=== PATIENT | male | born 1950 | race Caucasian/White ===

== ENCOUNTER 2019-10-30 08:29 | Inpatient (IN) ==
--- NOTE | 2019-10-15 19:52 | PAT Medication Instructions ---
Medication Instructions Date of Service October 15, 2019 Home Medications Medication Instructions Recorded hydrochlorothiazide 12.5 mg tablet 12.5 mg PO DAILY #30 tab 10/15/19 lisinopril 5 mg tablet 5 mg PO DAILY #30 tab 10/15/19 clonazepam 0.5 mg tablet 0.5 mg PO TID PRN omega-3 fatty acids 1,000 mg capsule 1,000 mg PO BID aspirin 81 mg tablet,delayed release 81 mg PO QAM azelastine 137 mcg (0.1 %) nasal spray aerosol 2 sprays INTNAS DAILY PRN ascorbic acid (vitamin C) [Vitamin C] 500 mg PO QAM cholecalciferol (vitamin D3) 2,000 units PO BID coenzyme Q10 [CoQ-10] 100 mg PO QAM echinacea 1,000 mg PO PM famotidine [Pepcid] 20 mg PO BID garlic 500 mg PO PM lactobacillus combination no.8 [Adult Probiotic] 3,000 mmu cells PO PM lisinopril-hydrochlorothiazide 0.5 tab PO PM loratadine 10 mg PO QAM saw-vit E-sod [id number] [Prostate Health] 1 tab PO DAILY PRN hydrochlorothiazide 12.5 mg tablet 12.5 mg PO DAILY lisinopril 5 mg tablet 5 mg PO DAILY ASK your prescriber and surgeon aspirin 81 mg tablet,delayed release 81 mg PO QAM STOP taking 2 weeks before surgery (or as soon as possible if surgery is within 2 weeks) omega-3 fatty acids 1,000 mg capsule 1,000 mg PO BID coenzyme Q10 [CoQ-10] 100 mg PO QAM echinacea 1,000 mg PO PM garlic 500 mg PO PM saw-vit E-sod [id number] [Prostate Health] 1 tab PO DAILY PRN DO NOT take the morning of surgery ascorbic acid (vitamin C) [Vitamin C] 500 mg PO QAM cholecalciferol (vitamin D3) 2,000 units PO BID loratadine 10 mg PO QAM hydrochlorothiazide 12.5 mg tablet 12.5 mg PO DAILY lisinopril 5 mg tablet 5 mg PO DAILY Take morning of surgery With a small sip of water, OTHERWISE NOTHING TO EAT OR DRINK AFTER MIDNIGHT: clonazepam 0.5 mg tablet 0.5 mg PO TID PRN (if needed) azelastine 137 mcg (0.1 %) nasal spray aerosol 2 sprays INTNAS DAILY PRN (if needed) famotidine [Pepcid] 20 mg PO BID Take evening before surgery clonazepam 0.5 mg tablet 0.5 mg PO TID PRN (if needed) azelastine 137 mcg (0.1 %) nasal spray aerosol 2 sprays INTNAS DAILY PRN (if needed) cholecalciferol (vitamin D3) 2,000 units PO BID famotidine [Pepcid] 20 mg PO BID lactobacillus combination no.8 [Adult Probiotic] 3,000 mmu cells PO PM lisinopril-hydrochlorothiazide 0.5 tab PO PM Other Notes If you have any questions please call us at [phone] or [phone] or [phone] or [phone]
--- NOTE | 2019-10-16 10:44 | Anesthesiology Consultation ---
Date of Service October 16, 2019 Assessment & Plan (1) Encounter for pre-operative examination: Per PAT assessment on 10/15: Travel screen negative. No known COVID-19 positive contacts ( tested 4 weeks ago, results negative). No current COVID-19 related symptoms. No hx of COVID-19 testing in past 30 days. - Concern RE: mendieta catheter- patient requests that if mendieta catheter needs to be placed, to be done after asleep/with anxiolytic first if possible. - PCP office visit: 08/26/19: anxiety/elevated BP/left leg weakness at 08/2019 PCP office visit- concern for stroke/no evidence of stroke or acute findings on brain MRI. Patient scheduled for preop PCP evaluation on 10/18 ([facility]/Dr. Rubi). Awaiting note. Chart Review Chart Review: Patient seen in Pre Admission Testing Teaching & Discussion Pre-Anesthesia Teaching/Discussion Notes: Instructed NPO after midnight before surgery,except medications with 15 cc of water. Medication instructions provided according to the PAT guidelines. History Surgery Operation Date: 10/30/19 10:35 Proposed Procedures p L4-S1 Decompression and Fusion, Spinal Cord Monitoring - Allen Banegas DO Height/Weight Height: 5 ft 8 in Weight: 89.3 kg Allergies Allergy/AdvReac Type Severity Reaction Status Date / Time atorvastatin Allergy Chest Pain Verified 10/09/19 08:59 moxifloxacin [From Avelox] Allergy Difficulty Verified 10/09/19 08:59 Breathing Penicillins Allergy Anaphylaxis Verified 10/09/19 08:59 simvastatin Allergy Chest Pain Verified 10/09/19 08:59 terazosin AdvReac excessive Verified 10/09/19 08:59 urination Medications Home Medications Medication Instructions Recorded Confirmed Last Taken clonazepam 0.5 mg tablet 0.5 mg PO TID PRN tab 08/16/19 10/09/19 Unknown omega-3 fatty acids 1,000 mg 1,000 mg PO BID cap 08/16/19 10/09/19 Unknown capsule aspirin 81 mg tablet,delayed 81 mg PO QAM 08/30/19 10/09/19 Unknown release azelastine 137 mcg (0.1 %) nasal 2 sprays INTNAS DAILY PRN ml 08/30/19 10/09/19 Unknown spray aerosol ascorbic acid (vitamin C) [Vitamin 500 mg PO QAM 10/09/19 10/09/19 Unknown C] cholecalciferol (vitamin D3) 2,000 units PO BID 10/09/19 10/09/19 Unknown coenzyme Q10 [CoQ-10] 100 mg PO QAM 10/09/19 10/09/19 Unknown echinacea 1,000 mg PO PM 10/09/19 10/09/19 Unknown famotidine [Pepcid] 20 mg PO BID 10/09/19 10/09/19 Unknown garlic 500 mg PO PM 10/09/19 10/09/19 Unknown lactobacillus combination no.8 3,000 mmu cells PO PM 10/09/19 10/09/19 Unknown [Adult Probiotic] lisinopril-hydrochlorothiazide 0.5 tab PO PM 10/09/19 10/09/19 Unknown loratadine 10 mg PO QAM 10/09/19 10/09/19 Unknown saw-vit E-sod [id number]-pyg 1 tab PO DAILY PRN 10/09/19 10/09/19 Unknown [Prostate Health] hydrochlorothiazide 12.5 mg tablet 12.5 mg PO DAILY #30 tab 10/15/19 Unknown lisinopril 5 mg tablet 5 mg PO DAILY #30 tab 10/15/19 Unknown Past Medical History Medical History Anxiety BPH (benign prostatic hyperplasia) Degenerative disc disease Emphysema lung stable GERD (gastroesophageal reflux disease) controlled Hearing deficit Hiatal hernia Hypertension Left leg weakness Liver injury transient liver injury 3 yrs ago> "recovered" (was due to having mono and was taking a supplement from [facility] chiropractor) was hospitalized at [facility] in [place] ~3-4 days- most recent available LFTs 04/2019 unremarkable Osteoarthritis Exercise / Class Metabolic Activity III < 4 Walking/Shop/Light housework Past Family History Family History Mother Anxiety Alzheimer disease Depression Father Lung cancer Denies family history of Ovarian cancer Prostate cancer Myocardial infarction Breast cancer Colorectal cancer Past Surgical History Surgical History H/O shoulder surgery right History of colonoscopy History of tooth extraction Hx of surgical procedure left leg to remove foreign object Hx of vasectomy Past Anesthesia History No Hx of Anesthesia Complications and No Family Hx of Anesthesia Complications History of PONV No Hx of PONV and Hx of Motion Sickness (mild, occasional) Social History Smoking Status: Former smoker tobacco type: cigarettes Do You Dip or Chew Tobacco: No Smoking End Date: Quit 05/2019- 1 PPD x 50 years Hx Alcohol Use: Yes Alcohol type: beer alcohol intake frequency: a few times a month Hx Substance Use: No substance use type: does not use Review of Systems Chronic, dry cough unchanged- felt r/t post-nasal drip. Patient denies chest pain, shortness of breath, fever, chills, wheezing, palpitations. Physical Exam Vital Signs VITALS BP right: 156/101 (manual recheck right: 152/92)/patient states BP monitored closely at home by who is a nurse- BP typically in the 130's/70's at home P 95 TEMP 98.1 SP02 95% RESP 16 PHYSICAL Full neck and c-spine range of motion. Full TMJ range of motion. TMD 3.5 finger breaths Mallampati Score 3 Dentition: edentulous, dentures upper/lower Lungs: clear throughout to auscultation Cardiac: regular rate and rhythm, no murmurs noted Spine: normal Carotid arteries: negative bruit Extremities: no edema Short, thin flowers Testing Laboratory Results 10/16/19 11:21 PT 10.1 Seconds (9.0-12.0) 10/16/19 11:21 INR 1.0 (0.9-1.1) 10/16/19 11:21 APTT 33.6 Seconds (21.0-31.0) H 10/16/19 11:21 Urine Color Yellow 10/16/19 Unknown Urine Appearance Clear (Clear) 10/16/19 Unknown Urine pH 5.5 (4.5-7.5) 10/16/19 Unknown Ur Specific [place] 1.012 (1.000-1.030) 10/16/19 Unknown Urine Protein Negative (Negative) 10/16/19 Unknown Urine Glucose (UA) Negative (Negative) 10/16/19 Unknown Urine Ketones Negative (Negative) 10/16/19 Unknown Urine Nitrite Negative (Negative) 10/16/19 Unknown Ur Leukocyte Esterase Negative (Negative) 10/16/19 Unknown Blood Type O Positive 10/16/19 11:21 Antibody Screen NEGATIVE 10/16/19 11:21 5/28//20 SODIUM 136 POTASSIUM 4.1 CHLORIDE 105 CO2 25 BUN 12 CREATININE 0.80 GLUCOSE 120 TSH 0.556 (WNL) HGBA1C 5.2% Electrocardiogram Date: 10/16/19 Findings: + NSR @ (83) Chest X-Ray Date: 10/16/19 FINDINGS: PA and lateral chest radiographs are compared to study dated 07/27/2007 and correlated with chest CT dated 12/25/2018. The cardiomediastinal silhouette is unremarkable noting atherosclerotic calcification of the thoracic aorta. Emphysema and chronic interstitial thickening are similar to previous. No airspace consolidation or pleural effusion is identified. There is no pneumothorax. The bony thorax appears intact. IMPRESSION: Emphysematous change with no active disease in the chest. Other Testing Brain MRI: 08/17/19: Findings consistent with atrophy and mild chronic small vessel disease. No acute intracranial abnormality.
--- NOTE | 2019-10-16 11:50 | XRay Report ---
TWO VIEW CHEST CLINICAL HISTORY: Preoperative examination. FINDINGS: PA and lateral chest radiographs are compared to study dated 07/27/2007 and correlated with chest CT dated 12/25/2018. The cardiomediastinal silhouette is unremarkable noting atherosclerotic navarro cification of the thoracic aorta. Emphysema and chronic interstitial thickening are similar to previo us. No airspace consolidation or pleural effusion is identified. There is no pneumothorax. The bony t horax appears intact. IMPRESSION: Emphysematous change with no active disease in the chest. ACT 112: Negative or not required by law. Electronically signed by: Simone Nunez M.D. 10/16/2019 11:48 AM
[2019-10-16 12:13] LABS: Basophils # (auto) 0.04 K/uL (0-0.2); Basophils % (auto) 0.6 %; Eosinophils # (auto) 0.34 K/uL (0-0.5); Eosinophils % (auto) 5.5 %; Hematocrit (blood only) 44.2 % (42-52); Immature Granulocytes # (auto) 0.01 K/uL (0.00-0.02); Immature Granulocytes % (auto) 0.2 %; Lymphocytes # (auto) 1.83 K/uL (1.2-3.4); Lymphocytes % (auto) 29.7 %; Mean Corpuscular Hemoglobin 30.5 pg (25-34); Mean Corpuscular Hgb Conc 36.2 g/dL (32-36); Mean Corpuscular Volume 84.2 fL (80-100); Mean Platelet Volume 8.6 fL (7.4-10.4); Monocytes # (auto) 0.58 K/uL (0.11-0.59); Monocytes % (auto) 9.4 %; Neutrophils # (auto) 3.36 K/uL (1.4-6.5); Neutrophils % (auto) 54.6 %; Platelet Count 220 K/uL (130-400); RDW Coefficient of Variation 12.8 % (11.5-14.5); RDW Standard Deviation 39.1 fL (36.4-46.3); Red Blood Count 5.25 M/uL (4.7-6.1); White Blood Count 6.16 K/uL (4.8-10.8)
[2019-10-16 12:18] LABS: Appearance Urine Clear (Clear); Bilirubin Urine Negative (Negative); Blood Urine Negative (Negative); Color Urine Yellow; Glucose Urine UA Negative (Negative); Ketones Urine Negative (Negative); Leukocyte Esterase Urine Negative (Negative); Nitrite Urine Negative (Negative); Protein Urine Negative (Negative); Specific Gravity Urine 1.012 (1.000-1.030); Urobilinogen Urine Negative (Negative); pH Urine 5.5 (4.5-7.5)
[2019-10-16 12:25] LABS: Partial Thromboplastin Ratio 1.2; Partial Thromboplastin Time 33.6 Seconds (21.0-31.0); Prothrombin Time 10.1 Seconds (9.0-12.0)
--- NOTE | 2019-10-16 15:38 | Electrocardiogram Report ---
Test Reason : Blood Pressure : / mmHG Vent. Rate : 083 BPM Atrial Rate : 083 BPM P-R Int : 176 ms QRS Dur : 082 ms QT Int : 370 ms P-R-T Axes : 063 034 026 degrees QTc Int : 434 ms Normal sinus rhythm Normal ECG When compared with ECG of 27-JUL-2007 13:27, No significant change was found Confirmed by Xiang Szymanski ([id number]) on 10/16/2019 3:37:25 PM Referred By: Allen Banegas Confirmed By:Gideon Szymanski
[~2019-10-30 08:29] MED LIST: CEFAZOLIN 2000MG 2,000 MG/15 ML SYR IV SCH; CLINDAMYCIN 600 MG/54 ML BAG IV SCH; GABAPENTIN 300 MG CAP PO SCH; LR 15ML/HR IV SCH
[2019-10-30] MEDS ORDERED: MIDAZOLAM HCL 1 MG/ML 2ML VIAL ONE (08:33)
[2019-10-30] MEDS ORDERED: fentaNYL citrate 100 MCG/2 ML VIAL ONE (08:33)
[2019-10-30] MEDS ORDERED: PROPOFOL IV EMULSION 10 MG/ML 20 ML VIAL IV ONE (08:34)
[2019-10-30] MEDS ORDERED: ROCURONIUM BROMIDE 10 MG/ML 5 ML VIAL IV ONE ×6 (08:34→11:10)
[2019-10-30] MEDS ORDERED: ONDANSETRON INJ 2 MG/ML 2 ML VIAL ONE (08:34)
[2019-10-30] MEDS ORDERED: LIDOCAINE HCL 2% 2 ML VIAL/AMP(20MG/ML) INFIL ONE (08:35)
[2019-10-30] MEDS ORDERED: DEXAMETHASONE SOD INJ 4 MG/ML VIAL ONE ×2 (08:35)
[2019-10-30] MEDS ORDERED: ATROPINE SULFATE 0.1 MG/ML 10ML SYR IV PRN (10:01)
[2019-10-30] MEDS ORDERED: fentaNYL citrate 100 MCG/2 ML VIAL IV PRN (10:01)
[2019-10-30] MEDS ORDERED: HYDROmorphone INJ 2 MG/ML SYR/VIAL IV PRN (10:01)
[2019-10-30] MEDS ORDERED: DEXAMETHASONE SOD INJ 4 MG/ML VIAL IV PRN (10:01)
[2019-10-30] MEDS ORDERED: PROMETHAZINE HCL 12.5 MG in SODIUM CHLORIDE 0.9% 50 ML IV PRN ×2 (10:01→14:16)
[2019-10-30] MEDS ORDERED: METOCLOPRAMIDE HCL INJ 5 MG/ML 2 ML VIAL IV PRN ×2 (10:01→14:16)
[2019-10-30] MEDS ORDERED: ONDANSETRON INJ 2 MG/ML 2 ML VIAL IV PRN ×2 (10:01→14:16)
[2019-10-30] MEDS ORDERED: ePHEDrine sulfate 50 MG/ML AMP IV PRN (10:01)
--- NOTE | 2019-10-30 10:13 | History & Physical Bridge Note ---
Date of Service October 30, 2019 History & Physical Bridge Note I have examined the patient, reviewed the History & Physical and in the interval since the performance of the History & Physical I have noted the following changes of clinical significance: no changes noted
--- NOTE | 2019-10-30 10:14 | History & Physical Report ---
Date of Service October 30, 2019 Assessment & Plan (1) Neurogenic claudication due to lumbar spinal stenosis: L4-S1 decompression fusion Present on Admission?: Yes History of Present Illness Chief Complaint: Back and leg pain Primary Care Provider: Luiz Rubi MD This is a 68-year-old male who presents with worsening back and leg pain. After failing extensive course of nonoperative care is here for surgical intervention. Allergies Allergy/AdvReac Type Severity Reaction Status Date / Time atorvastatin Allergy Severe Chest Pain Verified 10/30/19 10:04 moxifloxacin [From Avelox] Allergy Severe Difficulty Verified 10/30/19 10:04 Breathing Penicillins Allergy Severe Anaphylaxis Verified 10/30/19 10:04 simvastatin Allergy Intermediate Chest Pain Verified 10/30/19 10:04 terazosin AdvReac Mild excessive Verified 10/30/19 10:04 urination Home Medications Home Medications Medication Instructions Recorded Confirmed Type clonazepam 0.5 mg tablet 0.5 mg PO TID PRN tab 08/16/19 10/30/19 History omega-3 fatty acids 1,000 mg 1,000 mg PO BID cap 08/16/19 10/30/19 History capsule aspirin 81 mg tablet,delayed 81 mg PO QAM 08/30/19 10/30/19 History release azelastine 137 mcg (0.1 %) nasal 2 sprays INTNAS DAILY PRN ml 08/30/19 10/30/19 History spray aerosol ascorbic acid (vitamin C) [Vitamin 500 mg PO QAM 10/09/19 10/30/19 History C] coenzyme Q10 [CoQ-10] 100 mg PO QAM 10/09/19 10/30/19 History echinacea 1,000 mg PO PM 10/09/19 10/30/19 History famotidine [Pepcid] 20 mg PO BID 10/09/19 10/30/19 History garlic 500 mg PO PM 10/09/19 10/30/19 History lactobacillus combination no.8 3,000 mmu cells PO PM 10/09/19 10/30/19 History [Adult Probiotic] loratadine 10 mg PO QAM 10/09/19 10/30/19 History saw-vit E-sod [id number]-pyg 1 tab PO DAILY PRN 10/09/19 10/30/19 History [Prostate Health] lisinopril 5 mg tablet 5 mg PO DAILY #30 tab 10/15/19 10/30/19 Rx cholecalciferol (vitamin D3) 50 2,000 units PO DAILY cap 10/19/19 10/30/19 History mcg (2,000 unit) capsule Past Med/Surg History Medical History Anxiety BPH (benign prostatic hyperplasia) Degenerative disc disease Emphysema lung stable GERD (gastroesophageal reflux disease) controlled Hearing deficit Hiatal hernia Hypertension Left leg weakness Liver injury transient liver injury 3 yrs ago> "recovered" (was due to having mono and was taking a supplement from [facility] chiropractor) was hospitalized at [facility] in [place] ~3-4 days- most recent available LFTs 04/2019 unremarkable Osteoarthritis Surgical History H/O shoulder surgery right History of colonoscopy History of tooth extraction Hx of surgical procedure left leg to remove foreign object Hx of vasectomy Family History Mother Anxiety Alzheimer disease Depression Father Lung cancer Denies family history of Ovarian cancer Prostate cancer Myocardial infarction Breast cancer Colorectal cancer Social History Smoking Status: Current every day smoker ( STARTED AT 20 YEARS OLD, AVERAGED 1 PACK/DAY) Age Started Using Tobacco: 18; Age Quit Using Tobacco: 68; Smoking End Date: Quit 05/2019- 1 PPD x 50 years; Second Hand Exposure: Yes; Do You Dip or Chew Tobacco: No; Tobacco Cessation Education Requested by Patient: No Hx Alcohol Use: Yes Alcohol type: beer Hx Substance Use: No Preferred Language: Monegasque Communication Ability: Effective Hearing Ability: Use of Hearing Aid Manager Philosophy Required: No Beliefs That Will Affect Care: None marital status: Current Living Situation: Spouse Other Information That Helps Us Care for You: No Feels Safe at Home: Yes Safety Concerns: Feels Safe At This Time Childhood Exposure to Second-Hand Smoke: Yes Seatbelt Use: always Sunscreen Use: No Physical Exam Physical Exam: Patient is alert and oriented neurologically intact. Lungs clear to auscultation. Heart regular rate and rhythm. Results & Data Vital Signs (Past 12 Hours) Vital Signs Temp Pulse Resp BP Pulse Ox 10/30/19 09:55 132/104 H 10/30/19 08:55 36.9 C 122 H 22 167/126 H 97
[2019-10-30] MEDS ORDERED: BACITRACIN INJ 50,000 UNIT VIAL ONE (10:29)
[2019-10-30] MEDS ORDERED: BUPIVACAINE/EPINEPHRINE 0.25% 1:200,000 30 ML VIAL ONE (10:29)
[2019-10-30] MEDS ORDERED: HYDROmorphone INJ 2 MG/ML SYR/VIAL ONE (11:12)
[2019-10-30] MEDS ORDERED: FLOSEAL HEMOSTATIC MATRIX 10ML TOP ONE (11:35)
[2019-10-30] MEDS ORDERED: NEOSTIGMINE METHYLSULFATE 1 MG/ML 10ML VIAL ONE (12:38)
[2019-10-30] MEDS ORDERED: GLYCOPYRROLATE 0.2 MG/ML VIAL ONE (12:38)
--- NOTE | 2019-10-30 12:56 | Operative Report ---
Post Operative Report Pre & Post Diagnosis Operation Date: 10/30/19 10:15 Pre-Op Diagnosis: LUMBAR SPINAL STENOSIS W NEUROGENIC CLAUDICATION Post-Op Diagnosis: LUMBAR SPINAL STENOSIS W NEUROGENIC CLAUDICATION I identified the patient and participated in the time-out.: Yes Procedure Operation Date: 10/30/19 10:15 Actual Procedures #1 lumbar decompression with bilateral medial facetectomies and foraminotomies L3-4, L4-5 and L5-S1. #2 posterior spinal fusion L4-5 L5-S1. #3 placement posterior instrumentation L4-5 L5-S1. #4 interbody fusion L4-5 and L5-S1. #5 placed a peek cage 13 x 26 mm at L for 5 and L5-S1. #6 placement of locally harvested morselized autograft in the posterior lateral gutters. #7 placement infuse collagen sponge master graft in the posterior gutters and ostial amp and interbody space. Surgeon Allen Banegas, Printing Machinist Lata Shultz Estimated Blood Loss 200 Findings Consistent with Post-Op Diagnosis Specimens None Indications This is a 68-year-old male who presents with above-mentioned diagnosis after failed extensive course of nonoperative care is here for surgical intervention. Description of Procedure Patient was met with identified informed consent obtained. Patient was then taken to the operative suite underwent an patient placed in a prone position the Howie table on top Mu frame all bony prominences well-padded eyes inspected to ensure no external pressure placed upon the. This point lumbar spine was prepped and draped in a sterile fashion. Sharp dissection with the assistance of Bovie cautery was performed down to and exposing the lamina and transverse processes of L4-L5 and sacral ala bilaterally. From caudal cephalad fashion complete laminectomy L5 L4 and partial laminectomy of L3 was performed including bilateral medial facetectomies and foraminotomies addressing severe spinal stenosis. Pedicle screws were then placed in L4-L5 and S1 levels bilaterally with assistance of fluoroscopy and appropriately sized huseyin placed. By way of a transforaminal return the left complete discectomy of L5-S1 was perf ormed endplates curetted to subcortical bleeding bone and a 13 x 26 mm peek cage filled with osteo-bone graft tapped in position. Then proceeded L4-[address] of a transforaminal approach on the left complete discectomy performed endplates curetted to subcortical bleeding bone and a 13 x 26 mm peek cage filled with osteo-bone graft tapped in position. The rods were then locked in final position bilaterally. The transverse processes of L4-L5 and sacral ala burred to subcortical bleeding bone. Infuse collagen sponge master graft local autograft was then placed in the posterior gutters. 15 round CHARISSA drain inserted. The incision was then closed with 1 Vicryl the fascia 2-0 Vicryl subcutaneously and 4 Monocryl for final skin closure. Steri-Strips dressings placed. Patient waken taken PACU stable condition. Please note spinal cord monitoring was utilized that the procedure no changes noted. Lastly Lata Shultz was present at the entire procedure involved the patient positioning complex portions of the surgery and final skin closure. I attest to the content of the Intraoperative Record and any orders documented therein. Any exceptions are noted below.
--- NOTE | 2019-10-30 14:13 | Fluoroscopy Report ---
FL lumbar spine 2-3V HISTORY: 68 years-old Male L4-S1 DECMPRESSION/FUSION/INTERBODY COMPARISON: Chest radiograph 10/16/2019 TECHNIQUE: 2 spot fluoroscopic images of the lumbar spine were obtained utilizing 17.5 seconds fluoro scopy time FINDINGS: Laminectomy with discectomy, posterior interbody huseyin and screw fusion noted at 4-S1. Alignment appear s satisfactory. The hardware appears intact. Multilevel spondylitic spurring. IMPRESSION: Fluoroscopic assistance as above. Please see operative report for further details. ACT 112: Negative or not required by law. The above report was generated using voice recognition software. It may contain grammatical, syntax o r spelling errors. Electronically signed by: Frantz Wilson M.D. 10/30/2019 2:12 PM
[2019-10-30] MEDS ORDERED: LORazepam 0.5 MG TAB PO PRN (14:16)
[2019-10-30] MEDS ORDERED: ACETAMINOPHEN 1,000 MG/100 ML VIAL IV PRN (14:16)
[2019-10-30] MEDS ORDERED: DO NOT ADMINISTER FLU VACCINE PRN (14:16)
[2019-10-30] MEDS ORDERED: MAGNESIUM HYDROXIDE SUSP 30 ML UDC PO PRN (14:16)
[2019-10-30] MEDS ORDERED: LORazepam 0.5 MG/1 ML VIAL IV PRN (14:16)
[2019-10-30] MEDS ORDERED: SOD PHOSPHATE/SOD BIPHOSPHATE ENEMA 132 ML BTL PR PRN (14:16)
[2019-10-30] MEDS ORDERED: ALUMINUM/MAGNESIUM SUSP 30 ML UDC PO PRN (14:16)
[2019-10-30] MEDS ORDERED: bisacodyL 10 MG SUPP PR PRN (14:16)
[2019-10-30] MEDS ORDERED: FAMOTIDINE 20 MG TAB PO PRN (14:16)
[2019-10-30] MEDS ORDERED: TRAMADOL HCL 50 MG TABLET PO PRN (14:16)
[2019-10-30] MEDS ORDERED: DO NOT ADMINISTER PNEUMOCOCCAL VACCINE PRN (14:16)
[2019-10-30] MEDS ORDERED: ACETAMINOPHEN 500 MG TAB PO PRN (14:16)
[2019-10-30] MEDS ORDERED: HYDROmorphone INJ 0.5 MG/0.5 ML SYR IV PRN (14:16)
[2019-10-30] MEDS ORDERED: clonazePAM 0.5 MG TAB PO PRN (14:16)
[2019-10-30] MEDS ORDERED: ONDANSETRON 4 MG OD TAB PO PRN (14:16)
[2019-10-30] MEDS ORDERED: HYDROmorphone INJ 1 MG/ML SYRINGE IV PRN (14:16)
[2019-10-30] MEDS ORDERED: NALOXONE HCL 0.4 MG/1 ML VIAL/CARP IV PRN (14:16)
--- NOTE | 2019-10-30 15:10 | Anesthesiology Progress Note ---
Date of Service October 30, 2019 Anesthesia Post Procedure Vital Signs Vital Signs: Temp Pulse Pulse Pulse Resp BP BP 10/30/19 14:41 107 H 16 108/66 10/30/19 14:16 36.6 C 112 H 16 142/89 H 10/30/19 13:45 36.5 C 100 H 14 123/87 10/30/19 13:35 108 H 17 113/74 10/30/19 13:25 99 H 17 113/81 10/30/19 13:19 36.4 C L 98 H 15 120/82 10/30/19 09:55 132/104 H 10/30/19 08:55 36.9 C 122 H 22 167/126 H Pulse Ox 10/30/19 14:41 94 10/30/19 14:16 94 10/30/19 13:45 96 10/30/19 13:35 95 10/30/19 13:25 97 10/30/19 13:19 97 10/30/19 09:55 10/30/19 08:55 97 Pain Intensity Medial Back: Pain Intensity: 1 Transfer of Care Handoff Completed per policy Notes Mental Status: alert / awake / arousable and participated in evaluation Patient Amnestic to Procedure: Yes Nausea / Vomiting: adequately controlled Pain: adequately controlled Airway Patency, RR, SpO2: stable & adequate BP & HR: stable & adequate Hydration State: stable & adequate Anesthetic Complications: no major complications apparent
[2019-10-30] MEDS: SODIUM CHLORIDE 0.9% 1000ML 1,000 ML IV SCH (15:46)
[2019-10-30] MEDS: KETOROLAC TROMETHAMINE 15 MG/ML VIAL IV SCH ×2 (17:35→23:39)
[2019-10-30] MEDS: CLINDAMYCIN 600 MG in DEXTROSE 5% 50 ML IV SCH (17:35)
--- NOTE | 2019-10-30 18:18 | Hospitalist Consultation ---
Date of Consultation October 30, 2019 Assessment & Plan (1) Neurogenic claudication due to lumbar spinal stenosis: Status post L3-S1 lumbar decompression and fusion on 10/29 Dr. Banegas, EBL 200 mL's Postoperative care, bowel regimen, pain control and drain management all as per orthopedic surgery -Follow CBC, BMP in the morning -Continue acetaminophen as needed, IV Dilaudid as needed, Toradol PRN, and oxycodone, and tramadol as needed for pain -Antiemetics as needed IV fluids to continue Bowel regimen (2) Benign essential hypertension: Blood pressures are controlled, but mildly tachycardic could be secondary to anxiety and/or blood loss -Continue home aspirin, lisinopril 5 mg p.o. daily Follow blood pressures and heart rate -Continue IV fluids (3) Emphysema of lung: No current issues Not on inhalers at home Continue smoking cessation (4) GERD (gastroesophageal reflux disease): -Continue home Pepcid, caution with Toradol/NSAIDs (5) Anxiety: Stable -Continue clonazepam as needed (6) BPH (benign prostatic hyperplasia): No acute issues Is on saw palmetto at home Watch for urinary retention postoperatively De La Rosa catheter to be removed in the morning (7) DVT prophylaxis: SCDs Disposition-continued stay, hospital service will follow along History of Present Illness Reason for Consultation: Medical management Requesting Physician: Dr. Banegas Attending Physician: Allen Banegas, DO History of Present Illness This patient is a 68-year-old male with a history of HTN, GERD, BPH, mild COPD, and lumbar radiculopathy, who is admitted to the hospital after undergoing L3-S1 lumbar decompression and fusion. The hospital service is consulted for medical management. He just got out of bed to the chair for the first time and is feeling lightheaded. Denies chest pains or shortness of breath, denies headache. Denies nausea or vomiting. Denies abdominal pain. Last bowel movement was this morning. He has a De La Rosa catheter in place. Allergies Allergy/AdvReac Type Severity Reaction Status Date / Time atorvastatin Allergy Severe Chest Pain Verified 10/30/19 10:04 moxifloxacin [From Avelox] Allergy Severe Difficulty Verified 10/30/19 10:04 Breathing Penicillins Allergy Severe Anaphylaxis Verified 10/30/19 10:04 simvastatin Allergy Intermediate Chest Pain Verified 10/30/19 10:04 terazosin AdvReac Mild excessive Verified 10/30/19 10:04 urination Home Medications Home Medications Medication Instructions Recorded Confirmed Type clonazepam 0.5 mg tablet 0.5 mg PO TID PRN tab 08/16/19 10/30/19 History omega-3 fatty acids 1,000 mg 1,000 mg PO BID cap 08/16/19 10/30/19 History capsule aspirin 81 mg tablet,delayed 81 mg PO QAM 08/30/19 10/30/19 History release azelastine 137 mcg (0.1 %) nasal 2 sprays INTNAS DAILY PRN ml 08/30/19 10/30/19 History spray aerosol ascorbic acid (vitamin C) [Vitamin 500 mg PO QAM 10/09/19 10/30/19 History C] coenzyme Q10 [CoQ-10] 100 mg PO QAM 10/09/19 10/30/19 History echinacea 1,000 mg PO PM 10/09/19 10/30/19 History famotidine [Pepcid] 20 mg PO BID 10/09/19 10/30/19 History garlic 500 mg PO PM 10/09/19 10/30/19 History lactobacillus combination no.8 3,000 mmu cells PO PM 10/09/19 10/30/19 History [Adult Probiotic] loratadine 10 mg PO QAM 10/09/19 10/30/19 History saw-vit E-sod dyt-ved-jmub-pyg 1 tab PO DAILY PRN 10/09/19 10/30/19 History [Prostate Health] lisinopril 5 mg tablet 5 mg PO DAILY #30 tab 10/15/19 10/30/19 Rx cholecalciferol (vitamin D3) 50 2,000 units PO DAILY cap 10/19/19 10/30/19 History mcg (2,000 unit) capsule Patient History Medical History Anxiety BPH (benign prostatic hyperplasia) Degenerative disc disease Emphysema lung stable GERD (gastroesophageal reflux disease) controlled Hearing deficit Hiatal hernia Hypertension Left leg weakness Liver injury transient liver injury 3 yrs ago> "recovered" (was due to having mono and was taking a supplement from [facility] chiropractor) was hospitalized at [facility] in [place] ~3-4 days- most recent available LFTs 04/2019 unremarkable Osteoarthritis Surgical History H/O shoulder surgery right History of colonoscopy History of tooth extraction Hx of surgical procedure left leg to remove foreign object Hx of vasectomy Family History Mother Anxiety Alzheimer disease Depression Father Lung cancer Denies family history of Ovarian cancer Prostate cancer Myocardial infarction Breast cancer Colorectal cancer Social History Smoking Status: Current every day smoker ( STARTED AT 20 YEARS OLD, AVERAGED 1 PACK/DAY) Age Started Using Tobacco: 18; Age Quit Using Tobacco: 68; Smoking End Date: Quit 05/2019- 1 PPD x 50 years; Second Hand Exposure: Yes; Do You Dip or Chew Tobacco: No; Tobacco Cessation Education Requested by Patient: No Hx Alcohol Use: Yes Alcohol type: beer Hx Substance Use: No Preferred Language: Romanian Communication Ability: Effective Hearing Ability: Use of Hearing Aid Top Knitter Required: No Beliefs That Will Affect Care: None marital status: Current Living Situation: Spouse Other Information That Helps Us Care for You: No Feels Safe at Home: Yes Safety Concerns: Feels Safe At This Time Childhood Exposure to Second-Hand Smoke: Yes Seatbelt Use: always Sunscreen Use: No Review of Systems Review of Systems: All systems reviewed & are unremarkable except as noted in HPI & below Physical Exam Constitutional: WD/WN, vitals as above Eyes: + anicteric sclerae Neck: trachea midline, no thyromegaly Respiratory: normal respiratory effort, lungs clear to auscultation Cardiovascular: Rate/Rhythm: regular rhythm and + tachycardic Heart Sounds: no murmur Extremities: no calf tenderness and no edema Chest (Breasts): Chest: normal inspection of chest Gastrointestinal (Abdomen): normal bowel sounds, soft, nontender, no hepatosplenomegaly Musculoskeletal: Extremities: extremities normal to inspection; no cyanosis and no clubbing Skin: no rashes, warm and dry Neurologic: moves all extremities and awake; no focal motor deficits Psychiatric: A+Ox3, euthymic affect Lymphatic: no lymphedema Results & Data Results & Data ([facility]) Vital Signs (Past 12 Hours) Vital Signs Temp Pulse Pulse Pulse Resp BP BP 10/30/19 16:26 113 H 17 130/83 10/30/19 15:32 36.4 C L 107 H 18 131/80 10/30/19 14:41 107 H 16 108/66 10/30/19 14:16 36.6 C 112 H 16 142/89 H 10/30/19 13:45 36.5 C 100 H 14 123/87 10/30/19 13:35 108 H 17 113/74 10/30/19 13:25 99 H 17 113/81 10/30/19 13:19 36.4 C L 98 H 15 120/82 10/30/19 09:55 132/104 H 10/30/19 08:55 36.9 C 122 H 22 167/126 H Pulse Ox 10/30/19 16:26 97 10/30/19 15:32 94 10/30/19 14:41 94 10/30/19 14:16 94 10/30/19 13:45 96 10/30/19 13:35 95 10/30/19 13:25 97 10/30/19 13:19 97 10/30/19 09:55 10/30/19 08:55 97 Laboratory Results 10/30/19 Range/Units 09:18 Blood Type O Positive Antibody Screen NEGATIVE Crossmatch See Detail PG Care Time/CCT Total # of Minutes Spent Total Time Spent with Patient: Total time spent is greater than 50% in coordination of care (as documented) at patient's floor/unit and/or counseling patient: Coding Level of Care Code 86151 Inpt Consult Level 3 Diagnoses Neurogenic claudication due to lumbar spinal stenosis M48.062 Benign essential hypertension I10 Emphysema of lung J43.9 GERD (gastroesophageal reflux disease) K21.9 Anxiety F41.9 BPH (benign prostatic hyperplasia) N40.0 DVT prophylaxis Z29.9
[2019-10-30] MEDS: DOCUSATE SODIUM/SENNA 50/8.6MG TAB PO SCH (21:27)
[2019-10-30] MEDS: LACTOBACILLUS ACIDOPHILUS (FLORANEX) TAB PO SCH (21:27)
[2019-10-30] MEDS: FAMOTIDINE 20 MG TAB PO SCH (21:28)
[2019-10-31] MEDS: CALCIUM CARBONATE 500 MG CHEWABLE TAB PO PRN ×3 (01:45→20:59)
[2019-10-31] MEDS: SODIUM CHLORIDE 0.9% 1000ML 1,000 ML IV SCH (01:45)
[2019-10-31] MEDS: CLINDAMYCIN 600 MG in DEXTROSE 5% 50 ML IV SCH (01:50)
[2019-10-31] MEDS: POLYETHYLENE (MIRALAX) 17 GM PACK PO SCH ×4 (05:45→23:43)
[2019-10-31] MEDS: KETOROLAC TROMETHAMINE 15 MG/ML VIAL IV SCH ×2 (05:46→12:47)
[2019-10-31] MEDS: LORATADINE 10 MG TAB PO SCH (07:30)
[2019-10-31] MEDS: FAMOTIDINE 20 MG TAB PO SCH ×2 (07:30→21:00)
[2019-10-31] MEDS: CHOLECALCIFEROL 1,000 UNITS 25 MCG TAB PO SCH (07:33)
[2019-10-31] MEDS: ASCORBIC ACID 500 MG TAB PO SCH (07:33)
[2019-10-31] MEDS: lisinopriL 5 MG TAB PO SCH (07:33)
[2019-10-31] MEDS: ASPIRIN 81 MG ECTAB PO SCH (07:34)
[2019-10-31 07:48] LABS: Basophils # (auto) 0.01 K/uL (0-0.2); Basophils % (auto) 0.1 %; Eosinophils # (auto) 0.04 K/uL (0-0.5); Eosinophils % (auto) 0.4 %; Immature Granulocytes # (auto) 0.02 K/uL (0.00-0.02); Immature Granulocytes % (auto) 0.2 %; Lymphocytes # (auto) 1.46 K/uL (1.2-3.4); Lymphocytes % (auto) 13.8 %; Mean Corpuscular Hemoglobin 29.9 pg (25-34); Mean Corpuscular Hgb Conc 35.3 g/dL (32-36); Mean Corpuscular Volume 84.6 fL (80-100); Mean Platelet Volume 8.6 fL (7.4-10.4); Monocytes % (auto) 9.4 %; Neutrophils # (auto) 8.08 K/uL (1.4-6.5); Neutrophils % (auto) 76.1 %; Platelet Count 221 K/uL (130-400); RDW Coefficient of Variation 13.1 % (11.5-14.5); RDW Standard Deviation 40.3 fL (36.4-46.3); Red Blood Count 4.02 M/uL (4.7-6.1); White Blood Count 10.61 K/uL (4.8-10.8)
[2019-10-31 08:21] LABS: BUN Creatinine Ratio 15.3 (10-20); Calcium 8.7 mg/dl (8.5-10.1); Creatinine Clr Calc Pharmacy 90.3 ml/min; Est GFR (African American) 104.2; Est GFR (Non-African American) 89.9; Potassium 4.2 mmol/L (3.5-5.1)
--- NOTE | 2019-10-31 11:07 | Orthopedic Progress Note ---
Date of Service October 31, 2019 Assessment & Plan (1) Neurogenic claudication due to lumbar spinal stenosis: At this time we will continue physical therapy monitor CHARISSA operatively discharge home in next few days. Present on Admission?: Yes Admission and Anticipated Discharge Date Admission Date: October 30, 2019 Subjective Back pain controlled leg symptoms improved. Physical Exam Physical Exam: Patient has good strength testing appears comfortable. Results & Data ([facility]) Vital Signs (Past 12 Hours) Vital Signs Temp Pulse Pulse Resp BP Pulse Ox 10/31/19 07:31 92 H 129/87 10/31/19 03:23 36.5 C 95 H 16 108/74 94 10/30/19 23:36 36.7 C 103 H 16 130/86 93
--- NOTE | 2019-10-31 13:37 | Hospitalist Progress Note ---
Date of Service October 31, 2019 Assessment & Plan (1) Neurogenic claudication due to lumbar spinal stenosis: * POD #2 s/p L3-S1 lumbar decompression and fusion on 10/29 Dr. Banegas, EBL 200 mL's. CHARISSA output 660 mL cumulative * Postoperative care, bowel regimen, pain control and drain management all as per orthopedic surgery * H.h dropped to 12/34 -- likely acute blood loss anemia following surgery as well as dilutional from IVF * CBC in AM (2) Benign essential hypertension: * Chronic. Controlled, currently 114/74 * Continue home lisinopril 5mg * Continue to monitor (3) Emphysema of lung: * No current issues * Not on inhalers at home * Continue smoking cessation (4) GERD (gastroesophageal reflux disease): * Continue home Pepcid, caution with Toradol/NSAIDs (5) Anxiety: * Stable * Continue clonazepam as needed (6) BPH (benign prostatic hyperplasia): * No acute issues * Is on saw palmetto at home * UO acceptable * Continue to monitor (7) DVT prophylaxis: * SCDs Muscle twitching -- added mag level, 1.8. Continue to monitor. Possible related to toradol as he believes it happened after administration Disposition-continued stay, hospital service will follow along (8) Acute blood loss anemia: See above Admission and Anticipated Discharge Date Admission Date: October 30, 2019 Subjective Patient evaluated this afternoon. Pain tolerable with medication. Eating/drinking without difficulty. Passing flatus but no BM yet. LBM yesterday AM prior to surgery. Patient reports decreased numbness/tingling today but still with weakness LLE. States he has had some twitching in his left thigh that lasts for seconds to several minutes. Somewhat bothersome. Discussed monitoring electrolytes and to alert if recurs. Denies fevers, chills, chest pain, shortness of breath, abdominal pain, n/v/d, dysuria at this time. Questions/concerns addressed at this time. Review of Systems Review of Systems: All systems reviewed & are unremarkable except as noted in HPI & below Physical Exam Constitutional: WD/WN, vitals as above no acute distress ENMT: external ear and nose normal, oropharynx normal Neck: trachea midline, no thyromegaly Respiratory: normal respiratory effort, lungs clear to auscultation Cardiovascular: RRR, no murmur, no edema Gastrointestinal (Abdomen): normal bowel sounds, soft, nontender, no hepatosplenomegaly Musculoskeletal: dressing to spine c/d/i CHARISSA with bloody drainage strength 5/5 RLE, 3-4/5 LLE NVI 2+ pulses bilateral pt, dp Skin: no rashes, warm and dry Neurologic: PERRL, EOMI, accommodation nl, no face palsy, no dysarthria Psychiatric: A+Ox3, euthymic affect Lymphatic: no cervical or axillary lymphadenopathy Results & Data Results & Data ([facility]) Vital Signs (Past 12 Hours) Vital Signs Temp Pulse Pulse Resp BP Pulse Ox 10/31/19 07:31 92 H 129/87 10/31/19 03:23 36.5 C 95 H 16 108/74 94 Laboratory Results 10/31/19 10/31/19 10/31/19 Range/Units 07:20 07: 07:20 WBC 10.61 (4.8-10.8) K/uL RBC 4.02 L (4.7-6.1) M/uL Hgb 12.0 L (14.0-18.0) g/dL Hct 34.0 L (42-52) % MCV 84.6 (80-100) fL MCH 29.9 (25-34) pg MCHC 35.3 (32-36) g/dL RDW Std Deviation 40.3 (36.4-46.3) fL RDW Coeff of Sahil 13.1 (11.5-14.5) % Plt Count 221 (130-400) K/uL MPV 8.6 (7.4-10.4) fL Immature Gran % (Auto) 0.2 % Neut % (Auto) 76.1 % Lymph % (Auto) 13.8 % [place] % (Auto) 9.4 % Eos % (Auto) 0.4 % Baso % (Auto) 0.1 % Neut # (Auto) 8.08 H (1.4-6.5) K/uL Lymph # (Auto) 1.46 (1.2-3.4) K/uL [place] # (Auto) 1.00 H (0.11-0.59) K/uL Eos # (Auto) 0.04 (0-0.5) K/uL Baso # (Auto) 0.01 (0-0.2) K/uL Immature Gran # (Auto) 0.02 (0.00-0.02) K/uL Sodium 134 L (136-145) mmol/L Potassium 4.2 (3.5-5.1) mmol/L Chloride 103 (98-107) mmol/L Carbon Dioxide 25 (21-32) mmol/L Anion Gap 6.0 (3-11) BUN 13 (7-18) mg/dl Creatinine 0.87 (0.6-1.4) mg/dl Est Cr Clr Drug Dosing 90.3 ml/min Est GFR ( Amer) 104.2 Est GFR (Non-Af Amer) 89.9 BUN/Creatinine Ratio 15.3 (10-20) Glucose 117 H (70-99) mg/dl Calcium 8.7 (8.5-10.1) mg/dl Magnesium 1.8 (1.8-2.4) mg/dl Crossmatch 10/30/19 Range/Units 09:18 WBC (4.8-10.8) K/uL RBC (4.7-6.1) M/uL Hgb (14.0-18.0) g/dL Hct (42-52) % MCV (80-100) fL MCH (25-34) pg MCHC (32-36) g/dL RDW Std Deviation (36.4-46.3) fL RDW Coeff of Sahil (11.5-14.5) % Plt Count (130-400) K/uL MPV (7.4-10.4) fL Immature Gran % (Auto) % Neut % (Auto) % Lymph % (Auto) % [place] % (Auto) % Eos % (Auto) % Baso % (Auto) % Neut # (Auto) (1.4-6.5) K/uL Lymph # (Auto) (1.2-3.4) K/uL [place] # (Auto) (0.11-0.59) K/uL Eos # (Auto) (0-0.5) K/uL Baso # (Auto) (0-0.2) K/uL Immature Gran # (Auto) (0.00-0.02) K/uL Sodium (136-145) mmol/L Potassium (3.5-5.1) mmol/L Chloride (98-107) mmol/L Carbon Dioxide (21-32) mmol/L Anion Gap (3-11) BUN (7-18) mg/dl Creatinine (0.6-1.4) mg/dl Est Cr Clr Drug Dosing ml/min Est GFR ( Amer) Est GFR (Non-Af Amer) BUN/Creatinine Ratio (10-20) Glucose (70-99) mg/dl Calcium (8.5-10.1) mg/dl Magnesium (1.8-2.4) mg/dl Crossmatch See Detail PG Care Time/CCT Total # of Minutes Spent Total Time Spent with Patient: Total time spent is greater than 50% in coordination of care (as documented) at patient's floor/unit and/or counseling patient: Coding Level of Care Code 72572 Subseq Hosp Care Lvl 3 Diagnoses Neurogenic claudication due to lumbar spinal stenosis M48.062 Benign essential hypertension I10 Emphysema of lung J43.9 GERD (gastroesophageal reflux disease) K21.9 Anxiety F41.9 BPH (benign prostatic hyperplasia) N40.0 DVT prophylaxis Z29.9 Acute blood loss anemia D62
[2019-10-31] MEDS: OXYCODONE HCL IR 5 MG TAB (IMMEDIATE RELEASE) PO PRN ×3 (17:23→22:33)
[2019-10-31] MEDS: DOCUSATE SODIUM/SENNA 50/8.6MG TAB PO SCH (20:59)
[2019-10-31] MEDS: LACTOBACILLUS ACIDOPHILUS (FLORANEX) TAB PO SCH (21:00)
[2019-11-01] MEDS: OXYCODONE HCL IR 5 MG TAB (IMMEDIATE RELEASE) PO PRN ×3 (02:43→23:47)
[2019-11-01] MEDS: POLYETHYLENE (MIRALAX) 17 GM PACK PO SCH ×4 (05:48→23:47)
[2019-11-01 06:03] LABS: Hematocrit (blood only) 32.6 % (42-52); Hemoglobin 11.4 g/dL (14.0-18.0); Mean Corpuscular Hemoglobin 29.9 pg (25-34); Mean Corpuscular Volume 85.6 fL (80-100); Mean Platelet Volume 8.3 fL (7.4-10.4); Platelet Count 180 K/uL (130-400); RDW Coefficient of Variation 13.3 % (11.5-14.5); RDW Standard Deviation 41.5 fL (36.4-46.3); Red Blood Count 3.81 M/uL (4.7-6.1)
[2019-11-01 06:45] LABS: BUN Creatinine Ratio 22.4 (10-20); Calcium 8.5 mg/dl (8.5-10.1); Creatinine Clr Calc Pharmacy 88.3 ml/min; Est GFR (African American) 103.3; Est GFR (Non-African American) 89.1; Potassium 4.6 mmol/L (3.5-5.1)
--- NOTE | 2019-11-01 08:10 | Orthopedic Progress Note ---
Date of Service November 01, 2019 Assessment & Plan (1) Neurogenic claudication due to lumbar spinal stenosis: This time we will continue physical therapy advance his bowel regiment anticipate discharge home the next few days. Present on Admission?: Yes Admission and Anticipated Discharge Date Admission Date: October 30, 2019 Subjective Back pain controlled leg symptoms improving. Including improvement of his weakness. Physical Exam Physical Exam: Patient is good strength testing with some residual foot drop on the left though improving. Does appear comfortable. Results & Data ([facility]) Vital Signs (Past 12 Hours) Vital Signs Temp Pulse Pulse Resp BP Pulse Ox 11/01/19 07:33 36.8 C 101 H 18 123/76 91 10/31/19 23:20 36.9 C 96 H 16 120/73 91
[2019-11-01] MEDS: DEXAMETHASONE SOD PHOSPHATE 8 MG in SYRINGE 0 ML IV SCH (08:48)
[2019-11-01] MEDS: FAMOTIDINE 20 MG TAB PO SCH ×2 (08:48→20:39)
[2019-11-01] MEDS: CHOLECALCIFEROL 1,000 UNITS 25 MCG TAB PO SCH (08:49)
[2019-11-01] MEDS: ASPIRIN 81 MG ECTAB PO SCH (08:49)
[2019-11-01] MEDS: lisinopriL 5 MG TAB PO SCH (08:50)
[2019-11-01] MEDS: ASCORBIC ACID 500 MG TAB PO SCH (08:50)
[2019-11-01] MEDS: LORATADINE 10 MG TAB PO SCH (08:50)
--- NOTE | 2019-11-01 14:21 | Hospitalist Progress Note ---
Date of Service November 01, 2019 Assessment & Plan (1) Neurogenic claudication due to lumbar spinal stenosis: * POD #3 s/p L3-S1 lumbar decompression and fusion on 10/29 Dr. Banegas, EBL 200 mL's. * Postoperative care, bowel regimen, pain control and drain management all as per orthopedic surgery * H.h 11.4/32.6 -- likely acute blood loss anemia following surgery as well as dilutional from IVF. CHARISSA with additional 190cc this AM * CBC in AM (2) Benign essential hypertension: * Chronic. Controlled, currently 123/76 * Continue home lisinopril 5mg * Continue to monitor (3) Emphysema of lung: * No current issues * Not on inhalers at home * Continue smoking cessation (4) GERD (gastroesophageal reflux disease): * Continue home Pepcid, caution with Toradol/NSAIDs (5) Anxiety: * Stable * Continue clonazepam as needed (6) BPH (benign prostatic hyperplasia): * No acute issues * Is on saw palmetto at home * UO acceptable * Continue to monitor (7) DVT prophylaxis: * SCDs Muscle twitching -- added mag level, 1.8. Continue to monitor. Possible related to toradol as he believes it happened after administration. No further episodes reported today (10/31) Disposition-continued stay, hospital service will sign off at this time. Please reach out with any questions/concerns. (8) Acute blood loss anemia: See above Admission and Anticipated Discharge Date Admission Date: October 30, 2019 Subjective Patient evaluated this morning. Complaints of fatigue. Denies any chest pain, shortness of breath, dizziness or headache at this time. Improved strength to LLE but still with weakness. No numbness/tingling. Has been eating/drinking without difficulty. Was going to work with PT earlier this shift but wanted to get some rest first and they will re-evaluate this afternoon. Did feel like he had trouble emptying bladder earlier in the shift but states multiple people kept interrupting and once he was able to go to the bathroom and shut the door he was able to go. Review of Systems Review of Systems: All systems reviewed & are unremarkable except as noted in HPI & below Physical Exam Constitutional: WD/WN, vitals as above no acute distress ENMT: external ear and nose normal, oropharynx normal Neck: trachea midline, no thyromegaly Respiratory: normal respiratory effort, lungs clear to auscultation Cardiovascular: Rate/Rhythm: regular rhythm and + tachycardic Heart Sounds: no gallop, no murmur and no cardiac rub Extremities: normal capillary refill; no edema Gastrointestinal (Abdomen): normal bowel sounds, soft, nontender, no hepatosplenomegaly Musculoskeletal: dressing to spine c/d/i CHARISSA with bloody drainage, approx 15cc strength 5/5 RLE, 3-4/5 LLE with foot drop NVI 2+ pulses bilateral pt, dp Skin: no rashes, warm and dry Neurologic: PERRL, EOMI, accommodation nl, no face palsy, no dysarthria Psychiatric: A+Ox3, euthymic affect Lymphatic: no cervical or axillary lymphadenopathy Results & Data Results & Data ([facility]) Vital Signs (Past 12 Hours) Vital Signs Temp Pulse Resp BP Pulse Ox 11/01/19 07:33 36.8 C 101 H 18 123/76 91 PG Care Time/CCT Total # of Minutes Spent Total Time Spent with Patient: Total time spent is greater than 50% in coordination of care (as documented) at patient's floor/unit and/or counseling patient: Coding Level of Care Code 72535 Subseq Hosp Care Lvl 2 Diagnoses Neurogenic claudication due to lumbar spinal stenosis M48.062 Benign essential hypertension I10 Emphysema of lung J43.9 GERD (gastroesophageal reflux disease) K21.9 Anxiety F41.9 BPH (benign prostatic hyperplasia) N40.0 DVT prophylaxis Z29.9 Acute blood loss anemia D62
[2019-11-01] MEDS: DOCUSATE SODIUM/SENNA 50/8.6MG TAB PO SCH (20:39)
[2019-11-01] MEDS: LACTOBACILLUS ACIDOPHILUS (FLORANEX) TAB PO SCH (20:39)
[2019-11-02] MEDS: OXYCODONE HCL IR 5 MG TAB (IMMEDIATE RELEASE) PO PRN ×2 (05:14→10:09)
[2019-11-02] MEDS: POLYETHYLENE (MIRALAX) 17 GM PACK PO SCH ×2 (05:16→12:30)
[2019-11-02] MEDS: lisinopriL 5 MG TAB PO SCH (09:02)
[2019-11-02] MEDS: LORATADINE 10 MG TAB PO SCH (09:02)
[2019-11-02] MEDS: DEXAMETHASONE SOD PHOSPHATE 8 MG in SYRINGE 0 ML IV SCH (09:02)
[2019-11-02] MEDS: FAMOTIDINE 20 MG TAB PO SCH (09:02)
[2019-11-02] MEDS: CHOLECALCIFEROL 1,000 UNITS 25 MCG TAB PO SCH (09:02)
[2019-11-02] MEDS: ASPIRIN 81 MG ECTAB PO SCH (09:02)
[2019-11-02] MEDS: ASCORBIC ACID 500 MG TAB PO SCH (09:02)
--- NOTE | 2019-11-02 12:10 | Discharge Summary ---
Date of Service November 02, 2019 Admission HPI Per Admitting Provider This is a 68-year-old male who presents with worsening back and leg pain. After failing extensive course of nonoperative care is here for surgical intervention. Principal Diagnosis Lumbar spinal stenosis with neurogenic claudication Discharge Data Allergies Allergy/AdvReac Type Severity Reaction Status Date / Time atorvastatin Allergy Severe Chest Pain Verified 10/30/19 10:04 moxifloxacin [From Avelox] Allergy Severe Difficulty Verified 10/30/19 10:04 Breathing Penicillins Allergy Severe Anaphylaxis Verified 10/30/19 10:04 simvastatin Allergy Intermediate Chest Pain Verified 10/30/19 10:04 terazosin AdvReac Mild excessive Verified 10/30/19 10:04 urination Consultations 10/30/19 14:16 Consult Case Management - Discharge Planning Routine 10/30/19 14:31 Consult Hospitalist Routine Procedures Performed Operation Date: 10/30/19 10:15 Actual Procedures p L4-S1 Decompression and Fusion, Interbody Fusion L4-S1 with Spinal Cord Monitoring(Not Applicable) - Allen Banegas DO Ordered Studies 10/30/19 10:15 FL fluoroscopy <1hr Routine FL lumbar spine 2-3V Routine Hospital Course (1) Neurogenic claudication due to lumbar spinal stenosis: Patient underwent lumbar decompression fusion tolerated this well was taken to orthopedic for postoperative. Postop day 1 is up and ambulating back pain and leg pain improved. He appears to postop day #2 CHARISSA drain decreasing probably. Subsequently on postop day #3 is discharged home. Excellent strength testing that day pain well controlled subsequently discharge discharge orders instructions from the chart for further review. Total Time Total Time Spent Total Time Spent (In Minutes): 20 minutes Discharge Plan Discharge Items Patient Disposition: Home - Self-Care Reason For Visit: LUMBAR SPINAL STENOSIS W NEUROGENIC CLAUDICATION Discharge Diagnosis: Lumbar spinal stenosis with neurogenic claudication Activity: As commented below Non-emergency contact: Primary Care Provider Call non-emergency contact if: you have any medication questions Follow-up/Referrals: Luiz Rubi MD [Primary Care Provider] - Diet: Regular Addtl Attending Provider Instructions: ACTIVITY RECOMMENDATIONS: SELF CARE INSTRUCTIONS AFTER THORACIC/LUMBAR FUSIONS 1. You may walk to your tolerance. It is good exercise for your legs and back. Expect some back and intermittent leg aches and pains. 2. You may perform "counter-top" level activities (make a sandwich, fabrizio with a project, etc.). 3. No bending or lifting of more than 10 pounds or back twisting of any nature (roll like a log when turning in bed). 4. You may ride in a car for 20-30 minutes at a time. No driving until after your first visit with your doctor. 5. Frequent changes of position and restricting sitting to 30 minutes at a time will help limit the amount of back spasms and stiffness you may experience. 6. You may discontinue the use of ambulatory aids (cane, crutches, etc.) once your strength and confidence allow. 7. You may cupola operator insulation the shower and let water strike your incision when you arrive home at least once daily. Do not take a tub bath, sit in a hot tub or go into a swimming pool until after your first recheck in the office. SPECIAL CARE INSTRUCTIONS: VERY IMPORTANT TO READ AND REVIEW A. Your surgical incision has been closed with a cosmetic suture under the skin that will dissolve in about 6 weeks. In 14 days, you can use a pair of clean scissors and cut the suture that is left outside of the skin at the ends of your incision. 1. The small skin tapes can be removed 7 days after surgery if they have not fallen off by that point. 2. You may keep the wound open to air as much as possible to promote healing after post-op day number 5 unless told otherwise by your doctor. 3. If you think the wound looks like it is becoming infected (redness or worsening drainage) and/or you are experiencing fever, chill or worsening back pain and muscle spasms, contact the office so that we may evaluate you as soon as possible. B. Complications are uncommon, but please contact us if you have any signs or symptoms of: 1. wound infection (fever higher than 102.5 degrees F, redness, separation of wound, drainage, or increasing pain from the incision) 2. blood clots in legs (pain, swelling, redness and warmth in legs) 3. urinary tract infection (fever higher than 102.5 degrees F, burning upon urination or increased frequency of urination) 4. nerve problems (inability to walk on your toes or heels, numbness, loss of bowel or bladder control) 5. any other symptoms that concern you C. Please call the office at if you have any concerns or questions about your operation or recovery. D. No smoking! Smoking drastically decreases the chance of a solid fusion. E. Do not take any anti-inflammatory medications (Indocin, Advil, Motrin, Aspirin, Naprosyn, etc.) as these may inhibit the chance of a solid fusion. Tylenol is okay to take for pain. MANAGING PAIN AFTER SPINAL SURGERY 1. Narcotic medication is intended for short-term use and will be provided for surgical pain. Surgical pain usually lasts for a period of 4-6 weeks. Narcotic medication includes Percocet, Vicodin, Darvocet, Tylenol #3 or Lortab. 2. Longer-term pain is more appropriately treated with non-narcotic medication such as Tylenol ES. 3. Muscle spasm is not appropriately treated with narcotics. Muscle relaxers such as Soma, Flexeril or Skelaxin can be used along with Tylenol ES. 4. Remember that we all live with some "aches and pains". This is not unusual or uncommon after an injury or as we get older. a. Back pain is expected and may include muscle spasms for 4 to 6 weeks after surgery. The pain should gradually improve. If the pain worsens for no apparent reason, please contact the office. b. Intermittent leg pain may also be experienced and should not be concerned about unless it worsens for no apparent reason. If so, please contact the office. 5. We will provide appropriate medication within the normal guidelines of their prescribed use. We will also be very cautious and aware of potential abuse and extended duration of patients' medication needs. a. Pain medications are for your comfort and to assist with sleep and rest so that the tissue can heal. They are not provided in order to return to normal activity and should not be used through the day. To do so or worsening pain at night can result from ongoing tissue damage and development of tolerance to the prescribed medicine. 6. Please allow 2-3 days to process refills. Prescriptions will not be mailed but must be picked up at the office. FOLLOW UP VISIT: Keep your scheduled follow-up appointment. Any questions, please call the office at . Pending Studies at Discharge: No Stand-Alone Forms: My [employer] Smoking Cessation Medications and DC Order Prescriptions: New tramadol 50 mg tablet 50 mg PO Q6H PRN (Reason: pain, moderate) Qty: 20 RF: 0 oxycodone 5 mg tablet 5 mg PO Q6H PRN (Reason: pain, severe) Qty: 20 RF: 0 Continued lisinopril 5 mg tablet 5 mg PO DAILY Qty: 30 RF: 0 clonazepam 0.5 mg tablet 0.5 mg PO TID PRN (Reason: Anxiety) RF: 0 omega-3 fatty acids [Fish Oil Concentrate] 1,000 mg capsule 1,000 mg PO BID RF: 0 aspirin [Adult Low Dose Aspirin] 81 mg tablet,delayed release (DR/EC) 81 mg PO QAM RF: 0 azelastine 137 mcg (0.1 %) aerosol,spray 2 sprays INTNAS DAILY PRN (Reason: Allergy Symptoms) RF: 0 famotidine [Pepcid] 20 mg Tablet 20 mg PO BID RF: 0 garlic 500 mg Capsule 500 mg PO PM RF: 0 ascorbic acid (vitamin C) [Vitamin C] 500 mg Tablet 500 mg PO QAM RF: 0 echinacea 500 mg Capsule 1,000 mg PO PM RF: 0 loratadine 10 mg Tablet 10 mg PO QAM RF: 0 coenzyme Q10 [CoQ-10] 100 mg Capsule 100 mg PO QAM RF: 0 Adult Probiotic 3 billion cell capsule 3,000 mmu cells PO PM RF: 0 Prostate Health 160-100-100 mg-unit-mcg Tablet 1 tab PO DAILY PRN (Reason: Urinary Retention) RF: 0 cholecalciferol (vitamin D3) 50 mcg (2,000 unit) capsule 2,000 units PO DAILY RF: 0 Discharge Orders: Discharge Order (Routine); Ordered 11/02/19 Ordered By: Allen Banegas Admission Data Admit Date/Time: 10/30/19 14:10 Attending Provider: Allen Banegas Admit Provider: Allen Banegas Primary Care Provider: Luiz Rubi Other Providers: Elan Kelly ; [facility]
== END 2019-11-02 16:50 | disposition home health service (06) | DRG 454 ==
LOC: ASU 08:29 → 3E 14:10